=== PATIENT | male | born 1970 | race Two or more races ===

== ENCOUNTER 2017-10-02 12:34 | Emergency (ER) | payer SELFPAY ==
[2017-10-02] MEDS ORDERED: TETRACAINE 0.5% HCL 0.6ML DROPPER.BOTTLE OS ONE (12:38)
[2017-10-02] MEDS ORDERED: FLUORESCEIN NA 1 EA STRIP OU ONE (12:38)
--- NOTE | 2017-10-02 12:38 | PDOC ---
History of Present Illness - General Chief Complaint: Eye Problem Stated Complaint: IRRITATION TO BOTH EYES Time Seen by Provider: 10/02/17 12:37 - History of Present Illness Initial Comments: 10/02/17 14:34 Chief complaint: Red itchy eyes History of present illness: Patient complains of eyes that are red, itchy, with watery discharge, accompanied by seasonal ALLERGY symptoms. These occur each ear at this time. He is taking Claritin without relief Review of systems: No fever/chills, sore throat, cough, chest pain, shortness of breath, abdominal pain, nausea, vomiting, diarrhea, skin rash Past medical history: Mild hypertension controlled with metoprolol, seasonal ALLERGIES. No asthma Social/family history reviewed and noncontributory Physical exam: Alert oriented well-developed well-nourished no acute distress cooperative Afebrile, vital signs normal Conjunctivae are mildly injected without ciliary flush. Pupils are equal round and reactive to light and accommodation. Fundi are benign. EOMs are full without diplopia. Visual mueller are intact. Anterior chambers and corneas are clear, without evidence of abrasion or foreign body ENT with mild nasal congestion, watery nasal discharge. Ears and throat clear Neck supple without bruit mass or nodes Chest clear with full breath sounds bilaterally, no wheezes rales or rhonchi CV S1 and S2 normal without murmur rub or gallop Abdomen benign. No organomegaly Skin clear, no rash, adequate turgor Impression: Seasonal ALLERGIES, ALLERGIC conjunctivitis Plan: Symptomatic treatment and follow-up if no improvement. Fully ambulatory and in no distress upon discharge to follow-up as directed Past History - Past Medical History Allergies/Adverse Reactions: Allergies Allergy/AdvReac Type Severity Reaction Status Date / Time No Known Allergies Allergy Verified 10/02/17 12:36 Home Medications: Ambulatory Orders Chlorhexidine Gluconate [Hibiclens For Decolonization -] 1 applic TP DAILY #1 bottle 10/02/17 Fexofenadine HCl [Courtney Allergy] 60 mg PO BID #20 tablet 10/02/17 Ketotifen Fumarate [Zaditor] 1 drp OU BID #1 bot 10/02/17 Metoprolol Succinate [Toprol Xl] 50 mg PO DAILY 10/02/17 *DC/Admit/Observation/Transfer Diagnosis at time of Disposition: Seasonal allergic conjunctivitis, Folliculitis - Discharge Dispostion Disposition: HOME Condition at time of disposition: Stable Decision to Admit order: No - Prescriptions Prescriptions: Chlorhexidine Gluconate [Hibiclens For Decolonization -] 1 applic TP DAILY #1 bottle Fexofenadine HCl [Courtney Allergy] 60 mg PO BID #20 tablet Ketotifen Fumarate [Zaditor] 1 drp OU BID #1 bot - Referrals - Patient Instructions Printed Discharge Instructions: How to Instill Eye Drops Additional Instructions: Use antihistamine pills and eyedrops as directed. Discontinue Claritin if you are using the currently prescribed medications Use the body wash as directed for your skin condition "folliculitis" Follow-up with primary physician for further evaluation and treatment in one week - Post Discharge Activity
[2017-10-02] MEDS ORDERED: FLUORESCEIN NA 1 EA STRIP ONE (12:43)
[2017-10-02] MEDS ORDERED: TETRACAINE 0.5% OPHTH SOLN 2 ML BOTTLE ONE (12:43)
[2017-10-02 12:50] VITALS: BP 142/93; PULSE 72; TEMP 98.5; BMI 27.5
== END 2017-10-02 13:25 | disposition home or self-care (01) ==
LOC: FER 12:34
DX: J30.2 Other seasonal allergic rhinitis (principal); L73.9 Follicular disorder, unspecified
CPT/HCPCS: 99282-25

== ENCOUNTER 2020-06-24 15:23 | Emergency (ER) | payer OTHER ==
[2020-06-24 15:38] VITALS: BMI 26.6
[2020-06-24 17:31] LABS: BASO % 0.5 % (0-2.0); EOS % 1.8 % (0-4.5); HEMATOCRIT 46.3 % (35.4-49); HEMOGLOBIN 15.6 GM/dL (11.7-16.9); LYMPH % 36.7 % (8-40); MCH 29.2 pg (25.7-33.7); MCHC 33.8 g/dl (32.0-35.9); MEAN CELL VOLUME 86.4 fl (80-96); MEAN PLT VOLUME 8.9 fl (7.5-11.1); MONO % 9.3 % (3.8-10.2); NEUT % 51.7 % (42.8-82.8); PLATELET COUNT 195 K/MM3 (134-434); RBC 5.35 M/mm3 (4.00-5.60); RDW 13.4 % (11.9-15.9); WHITE BLOOD COUNT 5.7 K/mm3 (4.0-10.0)
[2020-06-24 17:54] LABS: POTASSIUM 4.3 mmol/L (3.5-5.1)
[2020-06-24 17:56] LABS: CALCIUM 9.2 mg/dL (8.5-10.1)
[2020-06-24 17:57] LABS: ALBUMIN 3.8 g/dl (3.4-5.0); BLOOD UREA NITROGEN 18.3 mg/dL (7-18)
[2020-06-24 18:00] LABS: CREATININE 0.8 mg/dL (0.55-1.3)
[2020-06-24 18:02] LABS: BILIRUBIN,TOTAL 0.8 mg/dL (0.2-1); TOT PROT 8.2 g/dl (6.4-8.2)
[2020-06-24 18:47] VITALS: BP 134/78; PULSE 98; TEMP 98
== END 2020-06-24 18:47 | disposition home or self-care (01) ==
LOC: JER 15:23
DX: J18.9 Pneumonia, unspecified organism (principal)
CPT/HCPCS: 36415; 71046-TC-FY; 80053; 85025; 99285-25; C9803; U0003

== ENCOUNTER 2023-05-06 09:08 | Emergency (ER) | payer OTHER ==
[2023-05-06 09:21] VITALS: BMI 24.9
[2023-05-06] MEDS ORDERED: SODIUM CHLORIDE 0.9% 500 ML INFUS.BAG IV ONE (10:28)
[2023-05-06] MEDS ORDERED: ACETAMINOPHEN 1000 MG/100 ML BAG IVPB ONE (10:45)
[2023-05-06] MEDS ORDERED: ACETAMINOPHEN INJECTION 100 ML IVPB ONE (10:55)
[2023-05-06 10:59] LABS: BASO % 0.6 % (0-2.0); EOS % 1.2 % (0-4.5); HEMATOCRIT 46.3 % (35.4-49); HEMOGLOBIN 15.8 GM/dL (11.7-16.9); LYMPH % 18.1 % (8-40); MCH 29.9 pg (25.7-33.7); MEAN CELL VOLUME 87.8 fl (80-96); MEAN PLT VOLUME 8.4 fl (7.5-11.1); MONO % 6.1 % (3.8-10.2); PLATELET COUNT 245 10^3/uL (134-434); RBC 5.28 M/mm3 (4.00-5.60); RDW 13.5 % (11.9-15.9); WHITE BLOOD COUNT 9.1 K/mm3 (4.0-10.0)
[2023-05-06 11:18] LABS: POTASSIUM 4.4 mmol/L (3.5-5.1)
[2023-05-06 11:20] LABS: CALCIUM 9.6 mg/dL (8.5-10.1)
[2023-05-06 11:21] LABS: ALBUMIN 3.7 g/dl (3.4-5.0); BLOOD UREA NITROGEN 10.9 mg/dL (7-18); MAGNESIUM 2.3 mg/dL (1.8-2.4)
[2023-05-06 11:26] LABS: BILIRUBIN,TOTAL 1.3 mg/dL (0.2-1)
[2023-05-06 11:55] LABS: TOT PROT 7.4 g/dl (6.4-8.2)
[2023-05-06] MEDS ORDERED: POLYMYXIN B SULFATE/TMP 10 ML OPHTHALMIC SOLUTION OS SCH ×2 (12:01→14:00)
[2023-05-06] MEDS ORDERED: POLYMYXIN B SULFATE/TMP 10 ML OPHTHALMIC SOLUTION OS ONE (12:22)
[2023-05-06 13:31] LABS: N-TERMINAL BNP 53.1 pg/ml (5-125)
[2023-05-06 16:01] VITALS: PULSE 95; RESP 20
[2023-05-06 17:44] VITALS: BP 138/86; TEMP 98.2
== END 2023-05-06 17:44 | disposition home or self-care (01) ==
LOC: JER 09:08
DX: R53.1 Weakness (principal); J02.9 Acute pharyngitis, unspecified; R55 Syncope and collapse; Z20.822 Contact with and (suspected) exposure to COVID-19
CPT/HCPCS: 0241U-QW; 36415; 70450-TC; 71045-TC-FY; 80053; 80061; 82962; 83036; 83735; 83880; 84443; 84484; 85025; 87651; 93005; 93010; 93306-TC; 99285-25